=== PATIENT | female | born 1955 | race Caucasian/White ===

== ENCOUNTER 2016-08-28 12:21 | Emergency (ER) | payer BC ==
[~2016-08-28] VITALS: Ht 167.6 cm; Wt 73.0 kg
[2016-08-28] MEDS ORDERED: KETOROLAC 60 MG/2 ML (TORADOL) VIAL IM ONE (12:35)
[2016-08-28] MEDS ORDERED: diphenhydrAMINE 50 MG/ML INJ (BENADRYL) IM ONE (12:35)
[2016-08-28] MEDS ORDERED: PROMETHAZINE 25 MG/ML (PHENERGAN) 1 ML VIAL IM ONE (12:35)
[2016-08-28 12:46] VITALS: BP 141/72
--- NOTE | 2016-08-28 12:47 | NUR ---
Pt requested to go home and rest after getting injections.
== END 2016-08-28 12:47 | disposition home or self-care (01) ==
LOC: EDUNIT# 12:21 → ED 12:23
DX: R51 Headache (principal)
CPT/HCPCS: 96372; 99282; J1200; J1885; J2550

== ENCOUNTER 2016-08-28 14:17 | Emergency (ER) | payer BC ==
[~2016-08-28] VITALS: Ht 167.6 cm; Wt 73.0 kg
[2016-08-28] MEDS ORDERED: HALOPERIDOL 5 MG/ML (HALDOL) 1 ML AMP IM ONE (14:30)
[2016-08-28] MEDS ORDERED: diphenhydrAMINE 50 MG/ML INJ (BENADRYL) IM ONE (14:30)
[2016-08-28] MEDS ORDERED: LORazepam 2 MG/ML (ATIVAN) 1 ML VIAL IM ONE (14:30)
--- NOTE | 2016-08-28 15:04 | NUR ---
PT AWAKENED TO CHECK ON HER. PT STATES "IM SURPRISED ITS NOT GOING AWAY FASTER THAN IT IS". PAIN DOWN TO 7/10. PT STATES NAUSEA IS BETTER. CL
[2016-08-28 15:26] VITALS: BP 168/91
== END 2016-08-28 15:12 | disposition home or self-care (01) ==
LOC: EDUNIT# 14:17 → ED 14:18
DX: R51 Headache (principal)
CPT/HCPCS: 96372; 99283; J1200; J1630; J2060; 99282

== ENCOUNTER 2016-11-01 05:41 | Emergency (ER) | payer BC ==
[~2016-11-01] VITALS: Ht 167.6 cm; Wt 72.2 kg
[~2016-11-01 05:41] MED LIST: AMIT10TA6 PO; ASPI-345 PO; ASPI-586 PO; ASPI-860 PO; AZIT250T81 PO; HYDR-3719 PO; HYDR-707 PO; ONDN4T PO; PRM25T PO; SUMA5SPR2 NS; VERA120T6 PO; VERA240C2 PO
--- OUTSIDE RECORDS SUMMARY | 2016-11-01 05:45 | XMS REPORT | Continuity of Care Document ---
Author Author [facility] Organization [facility] Address Unknown Phone Unavailable Care Team Providers Care Photo Printer Name Role Phone PCP Unavailable Source Comments Some departments are not documenting in the electronic medical record. If you do not see the information that you expected, contact Release of Information in the Health Information Management department at [phone] for further assistance in locating additional records.[facility] Active Allergies and Adverse Reactions No Known Allergies Current Medications Prescription Sig. Disp. Refills Start End Date Status Date aspirin EC 81 mg tablet Take 81 mg by mouth Active daily. verapamil (ISOPTIN) 120 Take 240 mg by mouth Active mg tablet daily. amitriptyline (ELAVIL) 10 TAKE ONE (1) TABLET(S) AT 150 Tab 5 Active mg tablet BEDTIME; MAY TAKE UP TO 5 16 TABS AT BEDTIME Active Problems Problem Noted Date Migraine 12/03/2012 Social History Tobacco Use Types Packs/Day Years Used Date Current Every Day Smoker Cigarettes 30 Smokeless Tobacco: Never Used Tobacco Cessation: Ready to Quit: No; Counseling Given: Yes Comments: Alcohol Use Drinks/Week oz/Week Comments No Last Filed Vital Signs Vital Sign Reading Time Taken Blood Pressure 119/77 03/03/2015 10:43 AM CDT Pulse 69 03/03/2015 10:43 AM CDT Temperature - - Respiratory Rate 20 12/03/2012 1:38 PM CDT Height 1.676 m (5' 6") 03/03/2015 10:43 AM CDT Weight 74.844 kg (165 lb) 03/03/2015 10:43 AM CDT Body Mass Index 26.64 03/03/2015 10:43 AM CDT Oxygen Saturation - - Plan of Care Health Maintenance Due Date Last Done Comments Hepatitis C Screening 1957 Physical (Comprehensive) 1964 Exam Pertussis Vaccine 1968 Tetanus Vaccine 1974 Cervical Cancer Screening 1978 Breast Cancer Screening 1997 Colorectal Cancer 2007 Screening Influenza Vaccine 02/14/2017 Results from Last 3 Months Not on file
--- OUTSIDE RECORDS SUMMARY | 2016-11-01 05:47 | XMS REPORT | Continuity of Care Document ---
Author Author [facility] Organization [facility] Address Unknown Phone Unavailable Care Team Providers Care Forest Nursery Worker Name Role Phone PCP Unavailable Source Comments Some departments are not documenting in the electronic medical record. If you do not see the information that you expected, contact Release of Information in the Health Information Management department at [phone] for further assistance in locating additional records.[facility] Active Allergies and Adverse Reactions No Known [...]
--- NOTE | 2016-11-01 06:00 | NUR ---
MADE AWARE OF PT'S ARRIVAL
[2016-11-01] MEDS ORDERED: diphenhydrAMINE 50 MG/ML INJ (BENADRYL) IM ONE (06:15)
[2016-11-01] MEDS ORDERED: KETOROLAC 60 MG/2 ML (TORADOL) VIAL IM ONE (06:15)
[2016-11-01] MEDS ORDERED: PROMETHAZINE 25 MG/ML (PHENERGAN) 1 ML VIAL IM ONE (06:15)
[2016-11-01 07:02] VITALS: BP 127/86
== END 2016-11-01 06:50 | disposition home or self-care (01) ==
LOC: ED 05:43
DX: G43.909 Migraine, unspecified, not intractable, without status migrainosus (principal)
CPT/HCPCS: 96372; 99282; J1200; J1885; J2550

== ENCOUNTER 2016-11-09 02:37 | Emergency (ER) | payer BC ==
[~2016-11-09] VITALS: Ht 167.6 cm; Wt 72.0 kg
--- OUTSIDE RECORDS SUMMARY | 2016-11-09 02:41 | XMS REPORT | Continuity of Care Document ---
Author Author [facility] Organization [facility] Address Unknown Phone Unavailable Care Team Providers Care Solar Engineer Name Role Phone PCP Unavailable Source Comments Some departments are not documenting in the electronic medical record. If you do not see the information that you expected, contact Release of Information in the Health Information Management department at [phone] for further assistance in locating additional records.[facility] Active Allergies and Adverse Reactions No Known [...]
--- OUTSIDE RECORDS SUMMARY | 2016-11-09 02:43 | XMS REPORT | Continuity of Care Document ---
Author Author [facility] Organization [facility] Address Unknown Phone Unavailable Care Team Providers Care Customer Service Manager Name Role Phone PCP Unavailable Source Comments Some departments are not documenting in the electronic medical record. If you do not see the information that you expected, contact Release of Information in the Health Information Management department at [phone] for further assistance in locating additional records.[facility] Active Allergies and Adverse Reactions No [...]
[2016-11-09] MEDS ORDERED: KETOROLAC 60 MG/2 ML (TORADOL) VIAL IM ONE (03:10)
[2016-11-09] MEDS ORDERED: diphenhydrAMINE 50 MG/ML INJ (BENADRYL) IM ONE (03:10)
[2016-11-09] MEDS ORDERED: PROMETHAZINE 25 MG/ML (PHENERGAN) 1 ML VIAL IM ONE (03:10)
[2016-11-09 04:03] VITALS: BP 156/78
--- NOTE | 2016-11-09 04:04 | NUR ---
No adverse reaction from IM injections. Pt DC'd home.
== END 2016-11-09 03:45 | disposition home or self-care (01) ==
LOC: ED 02:38
DX: G43.909 Migraine, unspecified, not intractable, without status migrainosus (principal)
CPT/HCPCS: 96372; 99282; J1200; J1885; J2550